=== PATIENT | female | born 1970 | race Caucasian/White ===

== ENCOUNTER 2021-09-06 05:57 | Emergency (ER) | payer OTHER, SELFPAY ==
[2021-09-06 05:59] VITALS: BP 155/88; PULSE 69; RESP 20; TEMP 36.9; O2SAT 100; BMI 31.7
[2021-09-06 06:32] LABS: Alanine Aminotransferase 21 U/L (12-78); Albumin Level 4.2 g/dl (3.5-5.0); Albumin/Globulin Ratio 1.2 (1.1-1.8); Alkaline Phosphatase 93 U/L (38-126); Anion Gap 8.6 mEq/L (5-15); Aspartate Amino Transferase 28 U/L (14-36); Bilirubin,Total 0.3 mg/dl (0.2-1.3); Blood Urea Nitrogen 10 mg/dl (7-17); Calcium 9.6 mg/dl (8.4-10.2); Carbon Dioxide 31 mmol/L (22.0-30.0); Chloride 103 mmol/L (98-107); Creatinine Clearance Estimated 113 mL/min (50-200); Estimated Glomerular Filt Rate 88 ml/min (>60); GFR (African American) 106 ML/MIN (>60); Globulin 3.6 g/dL (1.3-3.2); Glucose 115 mg/dl (74-100); Potassium 3.6 mmoL/L (3.5-5.1); Sodium 139 mmol/L (136-145); Total Protein,Serum 7.8 g/dl (6.3-8.2)
[2021-09-06 06:33] LABS: Basophils # 0.2 K/mm3 (0-0.2); Basophils % 1.9 % (0.1-2.0); Eosinophils # 0.2 K/mm3 (0.0-0.4); Hemoglobin 14.2 g/dL (12.2-16.2); Lymphocytes # 2.3 K/mm3 (0.7-4.5); Lymphocytes % 28.7 % (10-50); Mean Corpuscular HGB Conc 32.9 g/dL (31.8-35.4); Mean Corpuscular Hemoglobin 27.4 pg (27.0-31.2); Mean Corpuscular Volume 83.3 fl (81-99); Mean Platelet Volume 7.6 fl (7.4-10.4); Monocytes # 0.5 K/mm3 (0.1-1.0); Monocytes % 6.1 % (1.7-9.3); Neutrophils # 4.9 K/mm3 (1.8-7.8); Neutrophils % 60.4 % (37.0-80.0); Platelet Count 354 K/mm3 (142-424); Red Blood Count 5.16 M/mm3 (4.20-5.40); Red Cell Distribution Width 13.1 % (11.5-17.5); White Blood Count 8.1 K/mm3 (4.8-10.8)
[2021-09-06 06:37] LABS: C-Reactive Protein 10.9 mg/L (0-4)
--- NOTE | 2021-09-06 06:45 | HMH.EDHA ---
ED Disposition Clinical Impression: Migraine Qualifiers: Migraine type: unspecified Status migrainosus presence: without status migrainosus Intractability: not intractable Qualified Code(s): G43.909 - Migraine, unspecified, not intractable, without status migrainosus Disposition: Home, Self-Care Condition on Discharge: Good Instructions: DI for Migraine Additional Instructions: fluids and see pcp for follow up Referrals: Provider,Referral, MD [Primary Care Provider] - - Critical Care Critical Care Time: No Attestation: On 09/06/21, the high probability of a clinically significant, sudden or life threatening deterioration of the following system(s) required my full and direct attention, intervention and personal management. The time I documented below is in addition to time spent performing reported procedures but includes the following listed in this critical care notation. Medical Decision Making - Medical Records Medical records reviewed: Yes: I reviewed the patient's medical records. - Mushtaq Inquiry Pt receiving controlled substance: No Vital Signs: 09/06/21 05:59 Temperature 98.4 F Temperature Source Oral Pulse Rate [Right] 69 Respiratory Rate 20 Blood Pressure [Right Arm] 155/88 H Blood Pressure Mean [Right Arm] 110 02 Sat by Pulse Oximetry 100 Oxygen Delivery Method Room Air - Lab Data Lab results reviewed: Yes: I reviewed the patient's lab results. Lab Results 09/06/21 06:08: WBC 8.1, RBC 5.16, Hgb 14.2, Hct 43.0, MCV 83.3, MCH 27.4, MCHC 32.9, RDW 13.1, Plt Count 354, MPV 7.6, Neut % (Auto) 60.4, Lymph % (Auto) 28.7, Bennett % (Auto) 6.1, Eos % (Auto) 3.0, Baso % (Auto) 1.9, Neut # (Auto) 4.9, Lymph # (Auto) 2.3, Bennett # (Auto) 0.5, Eos # (Auto) 0.2, Baso # (Auto) 0.2 09/06/21 06:08: Sodium 139, Potassium 3.6, Chloride 103, Carbon Dioxide 31 H, Anion Gap 8.6, BUN 10, Creatinine 0.70, Estimated Creat Clear 113, Estimated GFR 88, Est GFR ( Amer) 106, Glucose 115 H, Calcium 9.6, Total Bilirubin 0.3, AST 28, ALT 21, Alkaline Phosphatase 93, C-Reactive Protein 10.9 H, Total Protein 7.8, Albumin 4.2, Globulin 3.6 H, Albumin/Globulin Ratio 1.2, Procalcitonin < 0.030 Result diagrams: 09/06/21 06:08 09/06/21 06:08 Orders (Tests/Meds): ED MEDICATIONS Generic Name Dose Route Start Last Admin Trade Name Freq PRN Reason Stop Dose Admin Sodium Chloride 1,000 mls @ 999 mls/hr 09/06/21 06:30 09/06/21 06:20 Sod Chlor 0.9% 1000ml Bag IV 09/06/21 07:30 999 mls/hr .[id number] BENJAMIN Administration Discontinued Medications Generic Name Dose Route Start Last Admin Trade Name Freq PRN Reason Stop Dose Admin Diphenhydramine HCl 25 mg 09/06/21 06:18 09/06/21 06:20 Diphenhydramine 50mg/Ml Vial IV 09/06/21 06:19 25 mg ONCE ONE Administration Ketorolac Tromethamine 30 mg 09/06/21 06:18 09/06/21 06:20 Ketorolac 30mg/Ml Vial IV 09/06/21 06:19 30 mg ONCE ONE Administration Metoclopramide HCl 10 mg 09/06/21 06:18 09/06/21 06:20 Metoclopramide Hcl 10mg/2ml Vial IVP 09/06/21 06:19 10 mg ONCE ONE Administration Promethazine HCl 25 mg 09/06/21 06:22 09/06/21 06:46 Promethazine Hcl 25mg/Ml 1ml Vial IV 09/06/21 06:23 25 mg ONCE ONE Administration Sodium Chloride 25 ml 09/06/21 06:22 09/06/21 06:46 Sodium Chloride 0.9% 25ml Bag IV 09/06/21 06:23 25 ml ONCE ONE Administration ORDERS Category Date Time Status Complete Blood Count Auto Diff Stat Lab 09/06/21 06:08 Results Erythrocyte Sedimentation Rate Stat Lab 09/06/21 06:08 Results Medical Decision Narrative: improved after treatment with stable exam Headache HPI - General Chief Complaint: Headache Stated Complaint: Migraine Time Seen by Provider: 09/06/21 06:45 Mode of Arrival: Family Vehicle Source of Information: Patient, Spouse, Medical Record Limitations: No Limitations Description of Symptoms (Recalled from ER Triage Doc. by RN): Pt c/o headache & nausea. States she had
[2021-09-06 06:55] LABS: Procalcitonin < 0.030 ng/mL (0.0-2.0)
[2021-09-06 07:06] VITALS: BP 111/67; PULSE 63; RESP 18; TEMP 36.8; O2SAT 96
[2021-09-06 07:25] LABS: Erythrocyte Sedimentation Rate 22 mm/hr (0-30)
== END 2021-09-06 07:08 | disposition home or self-care (01) ==
PROVIDERS: Emergency Provider Emergency Medicine
DX: G43.909 Migraine, unspecified, not intractable, without status migrainosus (principal); R11.0 Nausea
CPT/HCPCS: 80053; 84145; 85025; 85651; 86140; 96361; 96374; 96375; 99284

== ENCOUNTER → 2022-01-29 13:29 | Outpatient (CLI) | payer OTHER, SELFPAY | PROVIDERS: PCP Nurse Practitioner Family; Visit Provider Nurse Practitioner Family | DX: N39.0 Urinary tract infection, site not specified (principal); B37.9 Candidiasis, unspecified; B49 Unspecified mycosis | CPT/HCPCS: 87086; 87210 ==

== ENCOUNTER 2022-02-11 08:51 | Day surgery (SDC) | payer OTHER, SELFPAY ==
[2022-02-02 10:23] VITALS: BMI 32.1
[2022-02-11] VITALS (7 sets, daily range): BP systolic 112–144; BP diastolic 71–84; PULSE 57–72; RESP 16–18; TEMP 36.6–36.7; O2SAT 92–99
--- NOTE | 2022-02-11 09:20 | SUR.PREOP ---
Pt has had a name change to Corwin since scheduled for procedure but maiden name, Varinder, is still on stickers and id bracelet. Pt says that maiden name is still on insurance so leaving name as shown on paperwork and id bracelet. Pt's identity has been verified by birthday and maiden and name-pt in agreement.
--- NOTE | 2022-02-11 09:24 | EXP.ANES.CKL ---
[facility] Disclaimer: The information contained in this section may have been updated after the patient was seen, as this information can be updated by other users. Medical History Migraine Surgical History History of endometrial ablation Hx of tubal ligation Family History Other Family history of hyperlipidemia Family history of hypertension Family history of migraine headaches Family history of stroke History of heart artery stent Social History Smoking Status: Never smoker alcohol intake: never substance use type: denies use current occupational status: employed Travel in the last 8 weeks: None household members: family housing: apartment lives independently: Yes marital status: special ellen needs: No agree to transfusion: No do you feel safe at home: Yes victim of physical abuse: No victim of emotional abuse: No victim of sexual abuse: No would you like helpful sources: No [facility] Anesthesia Checklist Patient Identification Patient Identification: Arm Band Structural Data Admitted From: Home Planned Operative Procedure/s: EGD Consent for Planned Operative Procedure(s) Verified: Yes Verified Documents: Surgical Consent and History and Physical NPO Status Verified Time NPO: 00:00 Additional verifications Anesthesia Reactions: No Airway Assessment C-Spine Mobility Assessed: Yes TMJ Mobility Assessed: Yes Dentition: Edentulous Neurological Assessment Level of Consciousness: Awake and Alert Anesthesia Plan Anesthesia Risk discussed: Yes Anesthesia Plan: Verified ASA Class: II Anesthesia Type: MAC
--- NOTE | 2022-02-11 09:36 | HMH.SCOPE ---
Procedure: Date: 02/11/22 Patient Date of :: 1970 Procedure Performed:: EGD Indications:: The patient is a 51 year old who presents for EGD evaluation of chronic intermittent mid abdominal pain Performing Provider:: Khanh Dan MD Referring Provider:: Juan Jose Becerra APRN Sedation:: See RN records Procedure:: The gastroscope was gently passed through the incisoral orifice into the oral cavity and under direct visualization the esophagus was intubated. The endoscope was passed down the esophagus, through the stomach, and into the duodenum. Color, texture, mucosa, and anatomy of the esophagus, stomach, and duodenum were carefully examined with the scope. Findings:: Oropharynx: normal Esophagus: normal EG Junction: intact at 36 cm Cardia: normal Fundus: normal Body: Gastritis. Biopsy obtained Antrum: Erosive gastritis. Biopsies obtained Duodenal bulb: normal Duodenum (second and third portion): normal Impression: Distal erosive gastritis Recommendations:: Await pathology results Avoid NSAIDs Complications:: None Estimated blood obtained (mL): 0
== END 2022-02-11 10:30 | disposition home or self-care (01) ==
PROVIDERS: PCP Nurse Practitioner Family; Visit Provider Internal Medicine
PROC: 0DJ08ZZ Inspection of Upper Intestinal Tract, Via Natural or Artificial Opening Endoscopic (ICD-10-PCS; CPT 43235; principal; 2022-02-11 10:00)
DX: R10.9 Unspecified abdominal pain (principal); K29.70 Gastritis, unspecified, without bleeding; K21.9 Gastro-esophageal reflux disease without esophagitis; Z79.899 Other long term (current) drug therapy
CPT/HCPCS: 43239

== ENCOUNTER → 2022-04-02 09:33 | Outpatient (CLI) | payer OTHER, SELFPAY ==
[2022-04-02 10:34] LABS: Basophils # 0.1 K/mm3 (0-0.2); Basophils % 1.2 % (0.1-2.0); Eosinophils # 0.2 K/mm3 (0.0-0.4); Eosinophils % 2.9 % (0.1-12.0); Hematocrit 39.1 % (37.0-47.0); Lymphocytes # 2.1 K/mm3 (0.7-4.5); Lymphocytes % 33.1 % (10-50); Mean Corpuscular HGB Conc 33.3 g/dL (31.8-35.4); Mean Corpuscular Hemoglobin 27.5 pg (27.0-31.2); Mean Corpuscular Volume 82.8 fl (81-99); Mean Platelet Volume 8.2 fl (7.4-10.4); Monocytes # 0.3 K/mm3 (0.1-1.0); Monocytes % 4.8 % (1.7-9.3); Neutrophils # 3.7 K/mm3 (1.8-7.8); Platelet Count 304 K/mm3 (142-424); Red Blood Count 4.72 M/mm3 (4.20-5.40); Red Cell Distribution Width 13.6 % (11.5-17.5); White Blood Count 6.4 K/mm3 (4.8-10.8)
[2022-04-02 11:03] LABS: Chloride 106 mmol/L (98-107); Potassium 4.1 mmoL/L (3.5-5.1); Sodium 141 mmol/L (136-145)
[2022-04-02 11:05] LABS: Blood Urea Nitrogen 12 mg/dl (7-17); Estimated Glomerular Filt Rate 88 ml/min (>60); GFR (African American) 106 ML/MIN (>60)
[2022-04-02 11:06] LABS: Alanine Aminotransferase 19 U/L (12-78); Albumin Level 3.9 g/dl (3.5-5.0); Albumin/Globulin Ratio 1.3 (1.1-1.8); Alkaline Phosphatase 88 U/L (38-126); Anion Gap 9.1 mEq/L (5-15); Aspartate Amino Transferase 25 U/L (14-36); Bilirubin,Total 0.4 mg/dl (0.2-1.3); Calcium 8.8 mg/dl (8.4-10.2); Carbon Dioxide 30 mmol/L (22.0-30.0); Globulin 3.1 g/dL (1.3-3.2); Glucose 96 mg/dl (74-100)
[2022-04-02 11:38] LABS: HCG,Quantitative < 2 mIU/ml (0-5.42)
== END ==
PROVIDERS: PCP Nurse Practitioner Family; Visit Provider Obstetrics & Gynecology
DX: Z01.812 Encounter for preprocedural laboratory examination (principal); N83.8 Other noninflammatory disorders of ovary, fallopian tube and broad ligament
CPT/HCPCS: 36415; 80053; 84702; 85025

== ENCOUNTER 2022-04-07 06:06 | Day surgery (SDC) | payer OTHER, SELFPAY ==
[2022-04-03 12:54] VITALS: BMI 34.7
[2022-04-07] VITALS (16 sets, daily range): BP systolic 127–162; BP diastolic 69–93; PULSE 70–81; RESP 12–18; TEMP 36.3–43; O2SAT 91–100
--- NOTE | 2022-04-07 06:52 | P.PN_ITS ---
[facility] Disclaimer: The information contained in this section may have been updated after the patient was seen, as this information can be updated by other users. Medical History Hypertension Migraine Ovarian mass, right RLQ abdominal pain Sleep apnea Surgical History History of endometrial ablation Hx of tubal ligation Family History Other Family history of hyperlipidemia Family history of hypertension Family history of migraine headaches Family history of stroke History of heart artery stent Social History (Updated 04/07/22 @ 06:34 by Cheyenne Vasquez RN) Smoking Status: Never smoker alcohol intake: never substance use type: denies use current occupational status: employed Travel in the last 8 weeks: None household members: family housing: apartment lives independently: Yes marital status: special ellen needs: No agree to transfusion: No do you feel safe at home: Yes victim of physical abuse: No victim of emotional abuse: No victim of sexual abuse: No would you like helpful sources: No [facility] Anesthesia Checklist Patient Identification Patient Identification: Arm Band and Family Structural Data Admitted From: Home Planned Operative Procedure/s: Diagnostic Lap, Drainage of right ovarian cyst plus possile RSO. Consent for Planned Operative Procedure(s) Verified: Yes Verified Documents: Surgical Consent and History and Physical NPO Status Verified Time NPO: 00:00 Additional verifications Patient : No Anesthesia Reactions: No Hx Blood Transfusions: No Blood Transfusion Reaction: No Cephalosporin Allergy: No Previous Colonoscopy: No Airway Assessment C-Spine Mobility Assessed: Yes TMJ Mobility Assessed: Yes Dentition: Edentulous Neurological Assessment Level of Consciousness: Awake, Alert, Appropriate and Follows Commands Hx Seizures: No Numbness or tingling in extremities: No Anesthesia Plan Anesthesia Risk discussed: Yes ASA Class: II Anesthesia Type: General Preoperative Comments Pre-Operative Comments: Acid reflux. Hypertension.
--- NOTE | 2022-04-07 08:35 | EXP.OP.NOTE ---
Date of procedure: 04/07/22 Pre-op Diagnosis:: 1. RLQ abdominal pain 2. Right ovarian cyst Post-op Diagnosis:: 1. RLQ abdominal pain 2. Right ovarian cyst 3. Fibroid uterus 4. Endometriosis of pelvic peritoneum, stage 1 Procedure performed:: 1. Laparoscopic right salpingo oophorectomy Surgeon:: Kellie Faith DO Shop Estimator(s):: N/A DENTURES LAB TECHNICIAN:: Other Anesthesia: GETA Estimated blood loss (mL): 5 Clinical Note:: Mrs Tiffani Reeder is a 51 yo [id number] who presented to [facility] for scheduled procedure. She complains of RLQ pain. Pain started on 03/27/22. Pain progressively worsened and she went to [facility] on 03/31. She states nothing makes the pain better. She was given pain medication and it only made her head foggy. She admits rest offers a little relief but lying down increases her back pain. History of endometrial ablation and tubal ligation in 2016. 03/31/22: CT scan demonstrated large simple cyst in the right adnexa measuring 7.1 x 5.5 cm. Pelvic ultrasound revealed very large cyst with internal debris measuring 6.4 x 7.2 x 4.6 cm. There is a mildly thickened peripheral wall and some thickened septations along one edge of the cyst. Operative findings:: On bimanual exam, uterus felt slightly enlarged, retroverted and midline. Cervix appeared grossly normal On laparoscopic exam, grossly normal appearing liver, gallbladder, stomach and bowels. Uterus enlarged with fibroids within the myometrium and a small serosal fibroid. Multiple small raised clear blebs of endometriosis on anterior right uterine serosa proximal to right fallopian tube. Grossly normal appearing left fallopian tube and left ovary. Right fallopian tube with clear endometrial blebs present. Large right cystic mass encompassing the right ovary. Should patient require a hysterectomy at any point, would recommend abdominal hysterectomy secondary to enlarged fibroid uterus, retroverted. Operative note:: Risks, benefits and alternatives were discussed with the patient. Risks include but are not limited to bleeding, infection, damage to adjacent structures and VTE. Patient voiced understanding and agreed to proceed with surgery. She was wheeled back to the operating room and placed under general anesthesia without difficulty. She received 2 grams Ancef prior to start of procedure. She was placed in the dorsal lithotomy position and prepped and draped in normal sterile fashion. A straight catheter was used to drain the bladder. A bimanual exam was performed. A weighted Auvard was placed in the vaginal vault. A single tooth tenaculum was placed on the anterior lip of the cervix. Comfort manipulator was inserted into the cervical canal and attached to the tenaculum. Weighted Auvard was removed from the vagina. Attention was then drawn to the abdomen. A 2cm infraumbilical incision was made. Veress needle was tested and inserted intraabdominally without difficulty. Opening pressure of 7 mm Hg. Abdomen was then insulflated to 15 mm Hg. Trocar was inserted through infraumbilical incision and laparoscope was inserted. Abdomen was viewed in its entirety. See findings above. Pictures were taken. Left lower quadrant was transilluminated. 5 mm incision was made and 5 mm disposable blunt trocar was inserted into the abdomen under direct laparoscopic visualization. Trocar was removed and sleeve was left in place. Right lower quadrant was transilluminated. A 2 cm incision was made and an 11 mm disposable trocar was inserted into the abdomen under direct laparoscopic visualization. Obturator was removed and sleeve was left in place. Harmonic scalpel was used to create a small defect in ovarian cyst. Straw colored fluid was suctioned out of cyst until the cyst collapsed. Harmonic was used to transect the IP ligament, suspensory ligament of the right ovary and fallopian tube. The fallopian tube was then transected at the cornua. Endopouch was inserted through the trocar. Right fallopian tube and ovary was placed into the endo
--- NOTE | 2022-04-07 08:42 | P.PNANES_ITS ---
[facility] Anesthesia Record Part I Anesthesia Record I Intake, IV Amount: 850 Estimated blood loss (mL): 5 Urine output (mL): 0 Blood Pressure: 149/84 SaO2: 91 Pulse Rate: 80 Respiratory Rate: 16 Temperature: 97.7 F Patient is:: Drowsy and Stable Stable to PACU at:: 08:37
--- NOTE | 2022-04-07 09:19 | SUR.PHASEI ---
0914- detailed report called to ervin springer in post op 0915- pt left in stable condition with ervin springer in post op. All vss, dressings CDI. side rails up with lowest position
--- NOTE | 2022-04-07 10:40 | P.PNANES_ITS ---
[facility] Anesthesia Record Part II Anesthesia Record Part II Discharge Time: 09:14 Destination: Surgical Day Care (OP Surgery) PACU nurse assessment reviewed?: Yes Patient Condition:: Good Anesthesia Complications:: None Swallowing reflex intact?: Yes Cyanosis?: No Blood Pressure: 142/88 Pulse Rate: 70 Temperature: 97.9 F Mental Status: Alert & Oriented Pain level:: 4 Nausea and/or vomitting:: None Intake, IV Amount: 0
== END 2022-04-07 09:45 | disposition home or self-care (01) ==
PROVIDERS: PCP Nurse Practitioner Family; Visit Provider Obstetrics & Gynecology
PROC: (CPT 49320; principal; 2022-04-07 07:30)
DX: D25.9 Leiomyoma of uterus, unspecified (principal); N83.201 Unspecified ovarian cyst, right side; R10.31 Right lower quadrant pain; N80.30 Endometriosis of pelvic peritoneum, unspecified; Z79.899 Other long term (current) drug therapy
CPT/HCPCS: 58661; 88307; 96374; J2405

== ENCOUNTER 2023-08-17 10:00 | Outpatient (CLI) | payer BC, SELFPAY ==
--- NOTE | 2023-08-17 10:15 | US_ITS ---
PROCEDURE: US TRANSVAGINAL CLINICAL INDICATION: pelvic pain COMPARISON: No exams were available for comparison FINDINGS: Transvaginal sonographic images of the pelvis were obtained. UTERUS: 8.3cm x 6.3cmx 5.6cm anteverted with a combined endometrial thickness of 3.7mm. There is a posterior fibroid measuring 4.7 cm x 4.2 cm by 4.2 cm. Fibroid 2: 1.0 cm x 1.2 cm x 0.7 cm. Fibroid 3: 1.0 cm x 1.4 cm x 1.4 cm. LEFT OVARY: 3.1cmx1.3 cmx1.8cm with a volume of 6.6ml. There is a small follicle measuring 1.2 cm x 0.9 cm x 1.5 cm. There are several small echogenic foci within the left ovary that could represent old endometriosis. RIGHT OVARY: Surgically absent. Doppler flow to the left ovary is seen. There is no fluid in the cul-de-sac. IMPRESSION: 1. Anteverted uterus, bulky in size. The endometrium is thin measuring 3.7 mm. 2. There are at least 3 fibroids seen within the uterus. The largest located posteriorly measures 4.7 cm. 3. The right ovary is surgically absent. The left ovary appears normal with a small follicle measuring 1.5 cm. 4. There are several echogenic foci within the left ovary possibly representing old endometriosis. Dictated by: Narciso Plasencia MD 08/17/2023 13:56 Narciso Plasencia MD in OV 08/17/2023 13:56
== END 2023-08-17 23:59 | disposition home or self-care (01) ==
LOC: RAD 10:09
PROVIDERS: PCP Family Medicine; Visit Provider Obstetrics & Gynecology
DX: R10.2 Pelvic and perineal pain (principal)
CPT/HCPCS: 76830

== ENCOUNTER 2023-10-04 10:01 | Outpatient (CLI) | payer BC, SELFPAY ==
[2023-10-04 10:32] LABS: Amphetamine/Metha Screen,Urine Negative ng/ml (<1000)
[2023-10-04 10:33] LABS: Barbiturates Screen,Urine Negative ng/ml (<200); Benzodiazepines Screen,Urine Negative ng/ml (<200)
[2023-10-04 10:34] LABS: Cannabinoid Screen,Urine Negative ng/ml (<50)
[2023-10-04 10:35] LABS: Cocaine Screen,Urine Negative ng/ml (<300); Methadone Screen,Urine Negative ng/ml (<300)
[2023-10-04 10:36] LABS: Opiate Screen,Urine Negative ng/ml (<300); Phencyclidine Screen,Urine Negative ng/ml (<25)
[2023-10-04 10:37] LABS: Basophils # 0.1 K/mm3 (0-0.2); Basophils % 1.4 % (0.1-2.0); Eosinophils # 0.2 K/mm3 (0.0-0.4); Eosinophils % 2.5 % (0.1-12.0); Hemoglobin 13.5 g/dL (12.2-16.2); Lymphocytes # 1.9 K/mm3 (0.7-4.5); Mean Corpuscular HGB Conc 31.3 g/dL (31.8-35.4); Mean Corpuscular Hemoglobin 27.6 pg (27.0-31.2); Mean Corpuscular Volume 88.1 fl (81-99); Mean Platelet Volume 8.3 fl (7.4-10.4); Monocytes # 0.3 K/mm3 (0.1-1.0); Monocytes % 5.2 % (1.7-9.3); Neutrophils % 61.9 % (37.0-80.0); Platelet Count 299 K/mm3 (142-424); Red Blood Count 4.88 M/mm3 (4.20-5.40); Red Cell Distribution Width 14.1 % (11.5-17.5); White Blood Count 6.5 K/mm3 (4.8-10.8)
[2023-10-04 11:32] LABS: Albumin Level 4.1 g/dl (3.5-5.0); Chloride 106 mmol/L (98-107); Potassium 3.7 mmoL/L (3.5-5.1); Sodium 140 mmol/L (136-145)
[2023-10-04 11:35] LABS: Alanine Aminotransferase 16 U/L (12-78); Albumin/Globulin Ratio 1.4 (1.1-1.8); Alkaline Phosphatase 87 U/L (38-126); Anion Gap 7.7 mEq/L (5-15); Aspartate Amino Transferase 24 U/L (14-36); Bilirubin,Total 0.7 mg/dl (0.2-1.3); Blood Urea Nitrogen 11 mg/dl (7-17); Calcium 9.1 mg/dl (8.4-10.2); Carbon Dioxide 30 mmol/L (22.0-30.0); Estimated Glomerular Filt Rate 87 ml/min (>60); GFR (African American) 106 ML/MIN (>60); Glucose 101 mg/dl (74-100); Total Protein,Serum 7.1 g/dl (6.3-8.2)
[2023-10-04 11:52] LABS: HCG,Quantitative < 2 mIU/ml (0-5.42)
== END 2023-10-04 23:59 | disposition home or self-care (01) ==
LOC: LAB 10:03
PROVIDERS: PCP Family Medicine; Visit Provider Obstetrics & Gynecology
DX: Z01.818 Encounter for other preprocedural examination (principal); D25.9 Leiomyoma of uterus, unspecified
CPT/HCPCS: 36415; 80053; 80307; 84702; 85025; 86850